=== PATIENT | male | born 1960 | race Caucasian/White ===

== ENCOUNTER → 2017-12-28 | Outpatient (CLI) | payer OTHER | END | disposition home or self-care (01) | LOC: C.PATH 08:37 | PROVIDERS: ATTEND Physician Assistant Medical | DX: Q89.2 Congenital malformations of other endocrine glands (principal) ==

== ENCOUNTER → 2018-01-23 | Outpatient (CLI) | payer OTHER ==
--- NOTE | 2018-01-23 11:05 | DIAGNOSTIC IMAGING REPORT ---
GUIDANCE NEEDLE PLACEMENT CLINICAL HISTORY: THYROGLOSSAL DUCT CYST TECHNIQUE: Ultrasound-guided fine-needle aspiration COMPARISON STUDY: None FINDINGS: Following description of procedure and informed consent, 2 passes with a 25-gauge needle were made to the primarily cystic density anterior to the left central trachea. Pathology initially indicated benign cyst contents. There are no combinations. Patient was discharged without incident. Final pathology is pending. IMPRESSION: Successful fine-needle aspiration of a pretracheal complex cystic nodule. No complications of the time of the procedure. The above report was generated using voice recognition software. It may contain grammatical, syntax or spelling errors. Electronically signed by: Peewee Wilson M.D. 01/23/2018 11:03 AM Dictated Date/Time: 01/23/2018 11:02 AM
== END | disposition home or self-care (01) ==
LOC: C.ULTR 01-22 11:04
PROVIDERS: ATTEND Otolaryngology
DX: Q89.2 Congenital malformations of other endocrine glands (principal)